=== PATIENT | female | born 1945 | race American Indian/Alaskan Native ===

== ENCOUNTER 2016-09-02 13:07 | Emergency (ER) | payer MEDICARE, OTHER ==
[2016-09-02 13:38] VITALS: BP 132/69
--- NOTE | 2016-09-02 14:17 | EDM.PDOC ---
ED HPI GENERAL MEDICAL PROBLEM - General Chief Complaint: Flank Pain Stated Complaint: [id number] LEFT SIDE HURTS Time Seen by Provider: 09/02/16 13:50 - History of Present Illness INITIAL COMMENTS - FREE TEXT/NARRATIVE: Began having left posterior chest wall/ rib pain which started 2 days ago. Pain is located in the left posterior mid to lower ribs which is worsened with moving. No history of trauma. History of falling after slipping on ice with left rib fractures and left shoulder fracture for which surgery was done. She knows to left with her right hand. 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 She has not done any unusual lifting and has not had any travel history. She has had a viral URI with improvement in nasal congestion and nasal drainage. She has had a cough for a month without fever and tells me the cough is becoming less productive. Onset: Sudden Onset Date: 08/31/16 Duration: Day(s): (two) Location: Reports: Chest (posterior left mid to lower ribs.), Back Quality: Reports: Sharp Severity: Moderate Improves with: Reports: None Worsens with: Reports: Movement Associated Symptoms: Reports: Cough. 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: Acetaminophen, Other (see below) (Had 2 remaining Tramedol tablets which she took yesterday) Left Flank Pain Score (Numeric/FACES): 8 - Related Data Allergies Allergy/AdvReac Type Severity Reaction Status Date / Time codeine Allergy Hives Verified 05/30/15 21:12 Home Meds: Home Meds Atenolol 50 mg PO DAILY 08/26/13 [History] DULoxetine HCl [Cymbalta] 60 mg ORAL.INH DAILY 08/26/13 [History] Levothyroxine Sodium [Synthroid] 100 mcg ORAL.INH DAILY 08/26/13 [History] Pregabalin [Lyrica] 75 mg ORAL.INH BID 08/26/13 [History] Simvastatin [Zocor] 20 mg PO BEDTIME 08/26/13 [History] traMADol [Ultram] 50 mg PO PRN 09/02/16 [History] Past Medical History HEENT History: Reports: Impaired Vision Other HEENT History: Wearing corrective lenses Cardiovascular History: Reports: High Cholesterol, Hypertension Musculoskeletal History: Reports: Arthritis, Other (See Below) Other Musculoskeletal History: Broken ribs Psychiatric History: Reports: Depression Endocrine/Metabolic History: Reports: Hypothyroidism - Past Surgical History GI Surgical History: Reports: Cholecystectomy Female Surgical History: Reports: Hysterectomy Social & Family History - Family History Family Medical History: Noncontributory - Tobacco Use Smoking Status *Q: Never Smoker - Alcohol Use Days Per Week of Alcohol Use: 1 Number of Drinks Per Day: 0 Total Drinks Per Week: 0 - Recreational Drug Use Recreational Drug Use: No - Living Situation & Occupation Living situation: Reports: , with Family Occupation: Employed ED ROS GENERAL - Review of Systems Review Of Systems: See Below Constitutional: Reports: No Symptoms HEENT: Reports: Other (mild nasal congestion which has been improving) Respiratory: Reports: Cough. Denies: Hemoptysis (points to posterior left ribs) Cardiovascular: Reports: No Symptoms GI/Abdominal: Reports: No Symptoms Musculoskeletal: Denies: Neck Pain Skin: Reports: No Symptoms Neurological: Denies: Confusion, Dizziness, Headache, Paresthesia ED EXAM, GI/ABD - Physical Exam Exam: See Below Exam Limited By: No Limitations General Appearance: Alert, WD/WN, No Apparent Distress Eyes: Bilateral: Normal Appearance, EOMI Ears: Normal External Exam Throat/Mouth: Normal Inspection, Normal Lips, Normal Teeth, Normal Gums, Normal Oropharynx, Normal Voice, No Airway Compromise Head: Atraumatic, Normocephalic Neck: Normal Inspection, Supple, Non-Tender, Full Range of Motion Respiratory/Chest: No Respiratory Distress, Lungs Clear, Normal Breath Sounds, No Accessory Muscle Use, Other (diffuse tenderness of left posterior ribs/ chest wall. No corresponding midline back tenderness). No: Crackles, Rales, Rhonchi, Wheezing Cardiovascular: Normal Peripheral Pulses, No Edema, No Murmur, No Rub. No: Systolic Murmur GI/Abdominal: Soft, Non-Tender Back Exam: No: CVA Tenderness (L), CVA Tenderness (R), Muscle Spasm, Vertebral Tenderness Extremities: Normal Inspection, Normal Range of Motion, Non-Tender, Normal Capillary Refill, No Pedal Edema Neurological: Alert, Oriented, CN II-XII Intact, Normal Cognition, Normal Gait, Normal Reflexes, No Motor/Sensory Deficits Course - Vital Signs Last Recorded V/S: Last Vital Signs Temp 98 F 05/13/17 13:36 Pulse 80 09/02/16 13:36 Resp 16 09/02/16 13:36 BP 132/69 09/02/16 13:36 Pulse Ox 98 09/02/16 13:36 - Orders/Labs/Meds Orders: Active Orders 24 hr Category Date Time Status CXR [Chest 2V] [CR] Urgent Exams 09/02/16 13:35 Taken Labs: Laboratory Tests 09/02/16 09/02/16 09/02/16 Range/Units 13:48 13:48 13:59 WBC 9.3 (5.0-10.0) 10^3/uL RBC 5.23 (4.2-5.4) 10^6/uL Hgb 15.3 (12.0-16.0) g/dL Hct 47.3 H (37.0-47.0) % MCV 90.4 (80-100) fL MCH 29.3 (27.0-34.0) pg MCHC 32.3 L (33.0-35.0) g/dL Plt Count 348 (150-450) 10^3/uL Neut % (Auto) 67.2 (42.2-75.2) % Lymph % (Auto) 17.6 L (20.5-50.1) % Rankin % (Auto) 9.4 H (2-8) % Eos % (Auto) 5.4 H (1.0-3.0) % Baso % (Auto) 0.4 (0.0-1.0) % Sodium 137 (135-145) mmol/L Potassium 3.8 (3.6-5.0) mmol/L Chloride 105 (101-111) mmol/L Carbon Dioxide 26.0 (21.0-31.0) mmol/L Anion Gap 9.8 BUN 26 H (7-18) mg/dL Creatinine 1.1 (0.6-1.3) mg/dL Est Cr Clr Drug Dosing 44.55 mL/min Estimated GFR (MDRD) 49 BUN/Creatinine Ratio 23.63 Glucose 94 (74-105) mg/dL Calcium 9.6 (8.4-10.2) mg/dl Total Bilirubin 0.5 (0.2-1.0) mg/dL AST 16 (10-42) IU/L ALT 18 (10-60) IU/L Alkaline Phosphatase 76 (42-121) IU/L Total Protein 8.1 (6.7-8.2) g/dl Albumin 4.3 (3.2-5.5) g/dl Globulin 3.8 Albumin/Globulin Ratio 1.13 Urine Color Yellow (YELLOW) Urine Appearance Slightly cloudy (CLEAR) Urine pH 5.5 (5.0-9.0) Ur Specific [place] 1.020 (1.005-1.030) Urine Protein Negative (NEGATIVE) Urine Glucose (UA) Negative (NEGATIVE) Urine Ketones Trace H (NEGATIVE) Urine Occult Blood Negative (NEGATIVE) Urine Nitrite Negative (NEGATIVE) Urine Bilirubin Small H (NEGATIVE) Urine Urobilinogen 0.2 (0.2-1.0) mg/dL Ur Leukocyte Esterase Trace H (NEGATIVE) Urine RBC 0-5 /HPF Urine WBC 5-10 H (0-5/HPF) /HPF Ur Epithelial Cells Moderate H /HPF Urine Bacteria Many H (0-FEW/HPF) /HPF Urine Mucus Few H /LPF Departure - Departure Time of Disposition: 14:42 Disposition: Home, Self-Care 01 Condition: good Clinical Impression: UTI, Urinary tract infectious disease, Muscle strain, Left-sided chest wall pain URI (upper respiratory infection) Qualifiers: URI type: unspecified viral URI Qualified Code(s): J06.9 - Acute upper respiratory infection, unspecified; B97.89 - Other viral agents as the cause of diseases classified elsewhere - Discharge Information Instructions: Flank Pain, [id number], Pain Medicine Instructions, Easy-to- Read Forms: ED Department Discharge Additional Instructions: Take 1-2 Percocet tablets every 4 hours as needed for pain. Brace the left chest with a pillow when coughing. Try heat to posterior ribs up to 20 minutes every hour. Take Macrobid twice a day for 7 days. Follow up with your doctor in the next 10 days and sooner if worse. - My Orders Last 24 Hours: My Active Orders 09/02/16 13:35 CXR [Chest 2V] [CR] Urgent - Assessment/Plan Last 24 Hours: My Active Orders 09/02/16 13:35 CXR [Chest 2V] [CR] Urgent
== END 2016-09-02 15:13 | disposition home or self-care (01) ==
LOC: DL.ED 13:07
DX: N39.0 Urinary tract infection, site not specified (principal); R07.89 Other chest pain; J06.9 Acute upper respiratory infection, unspecified; B97.89 Other viral agents as the cause of diseases classified elsewhere; I10 Essential (primary) hypertension; Z88.5 Allergy status to narcotic agent; Z79.899 Other long term (current) drug therapy; H54.7 Unspecified visual loss; E78.00 Pure hypercholesterolemia, unspecified; E03.9 Hypothyroidism, unspecified; Z90.710 Acquired absence of both cervix and uterus; Z98.890 Other specified postprocedural states
CPT/HCPCS: 36415; 71020; 80053; 81001; 85025; 85379; 87086; 99283; 99284

== ENCOUNTER 2019-11-07 06:54 | Day surgery (SDC) | payer MEDICARE, OTHER ==
[~2019-11-07 06:54] MED LIST: Midazolam 1 MG/ML 2 ML SDV ONE; fentaNYL 100 MCG/2 ML SDV ONE
[2019-11-07] MEDS ORDERED: Midazolam 1 MG/ML 2 ML SDV IV ONE (06:55)
[2019-11-07] MEDS ORDERED: fentaNYL 100 MCG/2 ML SDV IV ONE (06:55)
[2019-11-07] MEDS: Dextrose 5%-0.45% NaCl 1,000 ML IV SCH (07:27)
[2019-11-07] MEDS: fentaNYL 100 MCG/2 ML SDV IV ONE ×2 (07:36→07:37)
[2019-11-07] MEDS: Midazolam 1 MG/ML 2 ML SDV IV ONE ×2 (07:37→07:38)
--- NOTE | 2019-11-07 09:15 | OR ---
DATE: 11/07/2019 PROCEDURES: Esophagogastroduodenoscopy, narrow-band imaging, and multiple pinch biopsies and brush biopsy. INSTRUMENT USED: GIF-HQ190 Olympus video panendoscope. PREMEDICATIONS: No oral or topical anesthesia used. Fentanyl 100 mcg intravenous, Versed 2 mg intravenous. Nasal O2 cannula. The procedure was done under pulse oximetry, BP recording, and child monitor. INDICATIONS: The patient with previous bariatric surgery with persistent abdominal pain, unexplained and not responsive to medical measures, on high-dose PPI. Esophagogastroduodenoscopy is performed for detection of any active erosive lesions, Calderon esophagus and/or malignancy also under consideration, H pylori status to be determined, endoscopic hemostasis therapy if needed. DESCRIPTION OF PROCEDURE: The scope was passed with ease. Adequate visualization of the esophagus was made from proximal to distal areas. No upper esophageal lesions identified. No distal esophageal stricture. No uphill or downhill esophageal varices. No Diana-Mckeon tear. No evidence of erosive esophagitis by [place] criteria. No esophageal polyp or tumor mass identified. Z-line was seen at around 39 cm distal to the oral verge, configuration consistent with grade 1 by ZAP classification. No proximal gastric varices noted. Gastric fundus examination by retroflexion showed no polypoid lesions. No gastric malignant mass or vascular ectasia identified. Multiple pinch biopsies were taken from the distal and proximal gastric mucosa and sent for PyloriTek test for H pylori and histopathology. At the surgical anastomotic site, 1 cm sized benign-appearing ulcer was noted without bleeding from it. Photographs were taken, NBI views were obtained, multiple pinch biopsies 4 in number were taken from different areas of the ulcer and brush biopsy was also taken. Visualized loops of the small bowel were unremarkable. No bleeding was noted from any of the visualized areas at the completion of examination. Photographs were taken of the anastomotic site, gastric fundus, as well as distal esophagus. IMPRESSION: 1. Status post bariatric surgery. 2. Anastomotic ulcer. 3. The patient tolerated the procedure well. [facility] /[id number]
--- NOTE | 2019-11-07 10:21 | LETTER ---
11/07/2019 Darby Willams NP [facility] [address] [place] [address] RE: YOLY FARMER : 1945 Dear Ms. Willams: Ms. Yoly Farmer had esophagogastroduodenoscopy done this morning and she tolerated the procedure well. I herewith send a copy of the endoscopy note and photographs for your review. Thank you. Sincerely, [facility] /[id number]
[2019-11-07 10:54] VITALS: BP 113/42; PULSE 75
== END 2019-11-07 10:30 | disposition home or self-care (01) ==
LOC: DL.ENDO 06:54
PROVIDERS: ATTEND Internal Medicine Gastroenterology
DX: K29.50 Unspecified chronic gastritis without bleeding (principal); K28.9 Gastrojejunal ulcer, unspecified as acute or chronic, without hemorrhage or perforation; E66.09 Other obesity due to excess calories; I10 Essential (primary) hypertension; E78.00 Pure hypercholesterolemia, unspecified; E03.9 Hypothyroidism, unspecified; F32.9 Major depressive disorder, single episode, unspecified; Z90.49 Acquired absence of other specified parts of digestive tract; Z98.84 Bariatric surgery status; Z79.82 Long term (current) use of aspirin; Z79.899 Other long term (current) drug therapy; Z68.35 Body mass index [BMI] 35.0-35.9, adult
CPT/HCPCS: 43239; 87077; J2250; J3010; J7042; 88305; 88342

== ENCOUNTER 2020-01-15 05:34 | Day surgery (SDC) | payer MEDICARE, OTHER ==
[2020-01-15] MEDS ORDERED: Midazolam 1 MG/ML 2 ML SDV IV ONE ×3 (05:35→06:39)
[2020-01-15] MEDS ORDERED: fentaNYL 100 MCG/2 ML SDV IV ONE ×3 (05:35→06:38)
[2020-01-15] MEDS ORDERED: Dextrose 5%-0.45% NaCl 1,000 ML IV SCH (06:00)
[2020-01-15] MEDS ORDERED: Sodium Chloride 0.9% 10 ML Syringe FLUSH PRN (06:00)
[2020-01-15] MEDS ORDERED: Midazolam 1 MG/ML 2 ML SDV ONE (06:12)
[2020-01-15] MEDS ORDERED: fentaNYL 100 MCG/2 ML SDV ONE (06:12)
[2020-01-15 08:42] VITALS: BP 110/41; PULSE 76
--- NOTE | 2020-01-15 10:01 | OR ---
DATE: 01/15/2020 PROCEDURE: Esophagogastroduodenoscopy and multiple pinch biopsies. INSTRUMENT USED: GIF-HQ190 Olympus video panendoscope. PREMEDICATIONS: No oral or topical anesthesia used. Fentanyl 100 mcg intravenous, Versed 2 mg intravenous. Nasal O2 cannula. The procedure was done under pulse oximetry, BP recording, and quality assurance monitor body. INDICATION: The patient with previous surgical anastomotic ulcer treated with high-dose PPI. Followup esophagogastroduodenoscopy is performed for verification of total healing of ulcer and rule out malignancy. DESCRIPTION OF PROCEDURE: The scope was passed with ease. Adequate visualization of the esophagus was made from proximal to distal areas. No upper esophageal lesions identified. No distal esophageal stricture. No uphill or downhill esophageal varices. No Diana-Mckeon tear. No evidence of erosive esophagitis by [place] criteria. No esophageal polyp or tumor mass identified. Z-line was seen at around 39 cm distal to the oral verge. Configuration consistent with grade 1 by ZAP classification. No proximal gastric varices noted. Gastric fundus examination by retroflexion showed no polypoid lesions. No gastric ulcer, malignant mass, or vascular ectasia identified. Surgical anastomotic site was unremarkable. Photographs were taken. Visualized loops of the small bowel were unremarkable. No bleeding was noted from any of the visualized areas at the completion of examination. IMPRESSION: Status post gastric surgery. The patient tolerated the procedure well. [facility] /[id number]
--- NOTE | 2020-01-15 11:12 | LETTER ---
01/15/[address] [facility] [address] [place] [address] RE: YOLY FARMER : 1945 Dear Ms. Willams: Ms. Yoly Farmer had esophagogastroduodenoscopy done this morning and she tolerated the procedure well. I herewith send a copy of the endoscopy note and photographs for your review. Thank you. Sincerely, [facility] /[id number]
== END 2020-01-15 08:45 | disposition home or self-care (01) ==
LOC: DL.ENDO 05:34
PROVIDERS: ATTEND Internal Medicine Gastroenterology
DX: Z09 Encounter for follow-up examination after completed treatment for conditions other than malignant neoplasm (principal); Z87.19 Personal history of other diseases of the digestive system; Z98.84 Bariatric surgery status
CPT/HCPCS: J2250; J3010; J7042

== ENCOUNTER 2021-08-09 06:38 | Emergency (ER) | payer MEDICARE, OTHER ==
[2021-08-09 06:47] VITALS: BP 148/75; PULSE 70
[2021-08-09] MEDS ORDERED: Sodium Chloride 0.9% 500 ML IV ONE (07:58)
[2021-08-09] MEDS ORDERED: Metoclopramide 10 MG/2 ML SDV IVPUSH ONE (08:00)
[2021-08-09 08:08] LABS: ANION GAP 12.5 mEq/L (7-13); CHLORIDE,CL 103 mmol/L (98-107); SODIUM,NA 140 mmol/L (136-145)
[2021-08-09] MEDS ORDERED: Iopamidol 612 MG/ML 100 ML Bottle IVPUSH ONE (08:55)
== END 2021-08-09 09:45 | disposition home or self-care (01) ==
LOC: DL.ED 06:38
DX: R10.11 Right upper quadrant pain (principal); E86.0 Dehydration; E78.00 Pure hypercholesterolemia, unspecified; R63.4 Abnormal weight loss; I10 Essential (primary) hypertension; K21.9 Gastro-esophageal reflux disease without esophagitis; I48.91 Unspecified atrial fibrillation; E03.9 Hypothyroidism, unspecified; E66.9 Obesity, unspecified; Z87.891 Personal history of nicotine dependence; Z79.899 Other long term (current) drug therapy; Z88.8 Allergy status to other drugs, medicaments and biological substances; Z79.02 Long term (current) use of antithrombotics/antiplatelets; Z79.01 Long term (current) use of anticoagulants; Z68.34 Body mass index [BMI] 34.0-34.9, adult
CPT/HCPCS: 36415; 74177; 80053; 81003; 82150; 83605; 83690; 83735; 84484; 85025; 86140; 96374; 99284; J2765; J7030; Q9967

== ENCOUNTER 2022-01-29 11:46 | Emergency (ER) | payer MEDICARE, OTHER ==
[2022-01-29] MEDS ORDERED: Tetracaine HCl/PF 0.5% 4 ML Bottle ONE (12:24)
[2022-01-29] MEDS ORDERED: prednisoLONE Acetate 1% Ophth Susp 5 ML Bottle ONE (12:24)
== END 2022-01-29 12:36 | disposition home or self-care (01) ==
LOC: DL.ED 11:46
DX: H10.212 Acute toxic conjunctivitis, left eye (principal)
CPT/HCPCS: 99282

== ENCOUNTER 2022-04-21 22:48 | Emergency (ER) | payer MEDICARE, OTHER ==
[2022-04-21 23:34] LABS: ANION GAP 19.5 mEq/L (7-13); CHLORIDE,CL 108 mmol/L (98-107); SODIUM,NA 144 mmol/L (136-145)
[2022-04-21 23:35] LABS: ESTIMATED GFR 76 mL/min (>=60)
[2022-04-21] MEDS ORDERED: LORazepam 2 MG/ML SDV IVPUSH ONE (23:41)
[2022-04-21] MEDS ORDERED: Ketorolac 30 MG/ML SDV IVPUSH ONE (23:41)
[2022-04-21 23:48] LABS: AMPHETAMINES,URINE NEGATIVE (NEGATIVE); BARBITURATES,URINE NEGATIVE (NEGATIVE); BENZODIAZEPINE,URINE NEGATIVE (NEGATIVE); MDMA (ECSTASY), URINE NEGATIVE (NEGATIVE); METHADONE,URINE NEGATIVE (NEGATIVE); METHAMPHETAMINES,URINE NEGATIVE (NEGATIVE); OPIATES,URINE NEGATIVE (NEGATIVE); OXYCODONE,URINE NEGATIVE (NEGATIVE); PHENCYCLIDINE,URINE NEGATIVE (NEGATIVE); TCA,URINE NEGATIVE (NEGATIVE)
== END 2022-04-22 00:30 | disposition home or self-care (01) ==
LOC: DL.ED 22:48
DX: S00.03XA Contusion of scalp, initial encounter (principal); F10.129 Alcohol abuse with intoxication, unspecified; L56.8 Other specified acute skin changes due to ultraviolet radiation; I10 Essential (primary) hypertension; Z90.49 Acquired absence of other specified parts of digestive tract; Z90.710 Acquired absence of both cervix and uterus; Z88.5 Allergy status to narcotic agent; Z88.6 Allergy status to analgesic agent; Z79.899 Other long term (current) drug therapy; Z79.01 Long term (current) use of anticoagulants; W01.10XA Fall on same level from slipping, tripping and stumbling with subsequent striking against unspecified object, initial encounter
CPT/HCPCS: 36415; 70450; 71250; 72125; 74176; 80053; 80305; 80307; 81003; 83605; 83735; 84145; 84443; 84484; 85025; 85610; 85730; 86140; 93005; 96374; 96375; 99285; J1885; J2060

== ENCOUNTER 2022-11-09 11:25 | Emergency (ER) | payer MEDICARE, OTHER ==
[2022-11-09] MEDS ORDERED: fentaNYL 100 MCG/2 ML SDV IV ONE (11:26)
[2022-11-09] MEDS ORDERED: LORazepam 2 MG/ML SDV IV ONE (11:26)
[2022-11-09] MEDS ORDERED: Sodium Chloride 0.9% 10 ML Syringe FLUSH PRN (11:27)
[2022-11-09] MEDS ORDERED: LORazepam 2 MG/ML SDV IVPUSH ONE ×2 (11:31→12:00)
[2022-11-09 11:47] LABS: BASOPHILS PERCENT AUTO 0.3 % (0.0-1.0); HEMATOCRIT 44.3 % (37.0-47.0); HEMOGLOBIN 14.6 g/dL (12.0-16.0); LYMPHOCYTES PERCENT AUTO 30.3 % (20.5-50.1); MEAN CORPUSCULAR HEMOGLOBIN 31.6 pg (27.0-34.0); MEAN CORPUSCULAR VOLUME 95.9 fL (80-100); NEUTROPHILS PERCENT AUTO 58.4 % (42.2-75.2); PLATELET COUNT,PLT 420 10^3/uL (150-450); RED BLOOD CELL COUNT 4.62 10^6/uL (4.2-5.4); WHITE BLOOD CELL COUNT,WBC 8.9 10^3/uL (5.0-10.0)
[2022-11-09] MEDS ORDERED: Iopamidol 612 MG/ML 100 ML Bottle IVPUSH ONE (11:59)
[2022-11-09 12:05] LABS: PROTHROMBIN TIME 10.2 SEC (9.0-12.0); PTT,PARTIAL THROMBOPLSTIN TIME 27.7 SEC (22.0-34.0)
[2022-11-09] MEDS ORDERED: fentaNYL 100 MCG/2 ML SDV IVPUSH ONE (12:05)
[2022-11-09 12:10] LABS: ALANINE AMINOTRANSFERASE,ALT 29 U/L (14-59); ALBUMIN 3.2 g/dL (3.4-5.0); ALKALINE PHOSPHATASE 84 U/L (46-116); ANION GAP 16.6 mEq/L (7-13); ASPARTATE AMNIOTRANSFERASE,AST 31 U/L (15-37); BILIRUBIN TOTAL 0.2 mg/dL (0.2-1.0); BLOOD UREA NITROGEN,BUN 7 mg/dL (7-18); BUN/CREATININE RATIO 8.5 (No establ ref range); CALCIUM 7.9 mg/dL (8.5-10.1); CARBON DIOXIDE,CO2 25 mmol/L (21-32); CHLORIDE,CL 108 mmol/L (98-107); CREATINE KINASE,CK 53 U/L (16-191); CREATININE 0.82 mg/dL (0.55-1.02); ETHANOL BLOOD MEDICAL 272 mg/dL (0); GLUCOSE RANDOM 122 mg/dL (70-99); MAGNESIUM 1.8 mg/dL (1.8-2.4); POTASSIUM,K 3.6 mmol/L (3.5-5.1); PROTEIN TOTAL,TP 7.7 g/dL (6.4-8.2); SODIUM,NA 146 mmol/L (136-145)
[2022-11-09 12:11] LABS: B-TYPE NATRIURETIC PEPTIDE,BNP 24 pg/ml (0-100)
[2022-11-09 12:12] LABS: A/G RATIO 0.71; ACETAMINOPHEN 0 ug/mL (10-30 (Therapeutic)); C-REACTIVE PROTEIN < 0.2 mg/dL (0.0-0.9); ESTIMATED GFR 74 mL/min (>=60)
[2022-11-09] MEDS ORDERED: MVI, Adult with Vitamin K 10 ML, Folic Acid 1 MG, Thiamine 100 MG in Lactated Ringers 1... IV ONE ×8 (12:45→12:46)
[2022-11-09] MEDS ORDERED: Sodium Chloride 0.9% 1,000 ML IV ONE (14:17)
[2022-11-09] MEDS ORDERED: Acetaminophen 500 MG Tab PO ONE (15:59)
== END 2022-11-09 18:14 | disposition home or self-care (01) ==
LOC: DL.ED 11:25
DX: F10.120 Alcohol abuse with intoxication, uncomplicated (principal); R45.851 Suicidal ideations; E03.9 Hypothyroidism, unspecified; I48.91 Unspecified atrial fibrillation; E78.00 Pure hypercholesterolemia, unspecified; I10 Essential (primary) hypertension; K21.9 Gastro-esophageal reflux disease without esophagitis; E66.9 Obesity, unspecified; Z79.01 Long term (current) use of anticoagulants; Z79.899 Other long term (current) drug therapy; Z88.5 Allergy status to narcotic agent; Z88.8 Allergy status to other drugs, medicaments and biological substances; W19.XXXA Unspecified fall, initial encounter
CPT/HCPCS: 36415; 70450; 71260; 72125; 74177; 80053; 80143; 80179; 80307; 82140; 82550; 83605; 83735; 83880; 84145; 84484; 85025; 85610; 85730; 86140; 93005; 93010; 96365; 99284; 99285; J2060; J3010; J3411; J7120; Q9967; J3490

== ENCOUNTER 2022-12-27 15:00 | Observation (INO) | payer MEDICARE, OTHER ==
[2022-12-27] MEDS ORDERED: Sodium Chloride 0.9% 10 ML Syringe FLUSH PRN (15:17)
[2022-12-27] MEDS ORDERED: Activated Charcoal/Water Susp 50 GM/240 ML Tube PO ONE (15:18)
[2022-12-27] MEDS ORDERED: Thiamine 100 MG in Sodium Chloride 0.9% 100 ML IV ONE (15:18)
[2022-12-27] MEDS ORDERED: Sodium Chloride 0.9% 1,000 ML IV ONE (15:18)
[2022-12-27 15:43] LABS: HEMATOCRIT 40.9 % (37.0-47.0); HEMOGLOBIN 13.7 g/dL (12.0-16.0); MEAN CORPUSCULAR HEMOGLOBIN 31.4 pg (27.0-34.0); MEAN CORPUSCULAR HGB CONC 33.5 g/dL (33.0-35.0); MEAN CORPUSCULAR VOLUME 93.6 fL (80-100); PLATELET COUNT,PLT 466 10^3/uL (150-450); RED BLOOD CELL COUNT 4.37 10^6/uL (4.2-5.4); WHITE BLOOD CELL COUNT,WBC 9.8 10^3/uL (5.0-10.0)
[2022-12-27 15:52] LABS: LYMPHOCYTES PERCENT AUTO 36.9 % (20.5-50.1); MONOCYTES PERCENT AUTO 10.3 % (2-8); NEUTROPHILS PERCENT AUTO 50.9 % (42.2-75.2)
[2022-12-27 15:53] LABS: BASOPHILS PERCENT AUTO 0.3 % (0.0-1.0); EOSINOPHILS PERCENT AUTO 1.6 % (1.0-3.0)
[2022-12-27 16:01] LABS: PTT,PARTIAL THROMBOPLSTIN TIME 27.6 SEC (22.0-34.0)
[2022-12-27 16:01] LABS: APPEARANCE,URINE SLIGHTLY CLOUDY (CLEAR); BILIRUBIN,URINE NEGATIVE (NEGATIVE); COLOR,URINE YELLOW (YELLOW); GLUCOSE,URINE NEGATIVE (NEGATIVE); KETONES,URINE NEGATIVE (NEGATIVE); LEUKOCYTE ESTERASE,URINE TRACE (NEGATIVE); NITRITE,URINE POSITIVE (NEGATIVE); OCCULT BLOOD,URINE TRACE-INTACT (NEGATIVE); PROTEIN,URINE NEGATIVE (NEGATIVE); UROBILINOGEN,URINE 0.2 mg/dL (0.2-1.0)
[2022-12-27 16:05] LABS: AMPHETAMINES,URINE NEGATIVE (NEGATIVE); BARBITURATES,URINE NEGATIVE (NEGATIVE); BENZODIAZEPINE,URINE NEGATIVE (NEGATIVE); MDMA (ECSTASY), URINE NEGATIVE (NEGATIVE); METHADONE,URINE NEGATIVE (NEGATIVE); METHAMPHETAMINES,URINE NEGATIVE (NEGATIVE); OPIATES,URINE NEGATIVE (NEGATIVE); OXYCODONE,URINE NEGATIVE (NEGATIVE); PHENCYCLIDINE,URINE NEGATIVE (NEGATIVE); TCA,URINE NEGATIVE (NEGATIVE)
[2022-12-27 16:11] LABS: EOSINOPHILS PERCENT MAN 2 % (1-3); LYMPHOCYTES PERCENT MAN 41 % (20-50); MONOCYTES PERCENT MAN 8 % (2-8); SEG NEUTROPHILS PERCENT MAN 49 % (42-75)
[2022-12-27 16:12] LABS: A/G RATIO 0.82; ALANINE AMINOTRANSFERASE,ALT 20 U/L (14-59); ALBUMIN 3.2 g/dL (3.4-5.0); ALKALINE PHOSPHATASE 80 U/L (46-116); ANION GAP 15.4 mEq/L (7-13); ASPARTATE AMNIOTRANSFERASE,AST 24 U/L (15-37); BILIRUBIN TOTAL 0.3 mg/dL (0.2-1.0); BLOOD UREA NITROGEN,BUN 7 mg/dL (7-18); BUN/CREATININE RATIO 12.3 (No establ ref range); CARBON DIOXIDE,CO2 24 mmol/L (21-32); CHLORIDE,CL 110 mmol/L (98-107); CREATININE 0.57 mg/dL (0.55-1.02); ESTIMATED GFR 94 mL/min (>=60); ETHANOL BLOOD MEDICAL 221 mg/dL (0); GLUCOSE RANDOM 109 mg/dL (70-99); MAGNESIUM 1.8 mg/dL (1.8-2.4); POTASSIUM,K 3.4 mmol/L (3.5-5.1); PROTEIN TOTAL,TP 7.1 g/dL (6.4-8.2); SODIUM,NA 146 mmol/L (136-145); TSH ULTRASENSITIVE 0.82 uIU/mL (0.36-3.74)
[2022-12-27 16:13] LABS: ACETAMINOPHEN 0 ug/mL (10-30 (Therapeutic))
[2022-12-27 16:15] LABS: AMORPHOUS SEDIMENT,URINE FEW /HPF (NOT SEEN); BACTERIA,URINE MANY /HPF (0-FEW/HPF); EPITHELIAL CELLS,URINE FEW /HPF (NOT SEEN); MUCUS,URINE RARE /LPF (NOT SEEN); RBC,URINE 0-5 /HPF (0-5); WBC,URINE 0-5 /HPF (0-5/HPF)
[2022-12-27] MEDS ORDERED: Acetaminophen 325 MG Tab PO PRN (17:26)
[2022-12-27] MEDS ORDERED: Ondansetron 4 MG/2 ML SDV IVPUSH PRN (17:26)
[2022-12-27] MEDS ORDERED: Meclizine 12.5 MG Tab PO PRN (17:29)
[2022-12-27] MEDS ORDERED: traZODone 50 MG Tab PO PRN (17:29)
[2022-12-27] MEDS ORDERED: diphenhydrAMINE 25 MG Tab PO PRN (17:29)
[2022-12-27] MEDS ORDERED: [UNRECOGNIZED DRUG - OTHER] PO PRN (17:29)
[2022-12-27] MEDS ORDERED: Melatonin 3 MG Tab PO PRN (18:47)
[2022-12-27] MEDS: Polyvinyl Alcohol 1.4% Ophth Soln 15 ML Bottle EYEBOTH SCH (18:48)
[2022-12-27] MEDS: ClonazePAM 0.5 MG Tab PO PRN (20:22)
[2022-12-27] MEDS: Docusate Sodium 100 MG Cap PO SCH (20:23)
[2022-12-27] MEDS: traZODone 50 MG Tab PO PRN (20:23)
[2022-12-27] MEDS: Amitriptyline 25 MG Tab PO SCH (20:23)
[2022-12-27] MEDS ORDERED: Non-Formulary Medication 1 Each (Clobetasol [Clobetasol Propionate 0.05%] 15 GM Tube) TP SCH (21:00)
[2022-12-27] MEDS ORDERED: IRON PO SCH (21:00)
[2022-12-27] MEDS ORDERED: [UNRECOGNIZED DRUG - OTHER] PO SCH (21:00)
[2022-12-27] MEDS ORDERED: Apixaban 5 MG Tab PO SCH (21:00)
[2022-12-27] MEDS ORDERED: FOLIC ACID PO SCH (21:00)
[2022-12-27] MEDS ORDERED: MULTIVIT MIN PO SCH (21:00)
[2022-12-27] MEDS ORDERED: Non-Formulary Medication 1 Each (Ketotifen [Ketotifen 0.025% Ophth Soln] 5 ML Bottle) OP SCH (21:00)
[2022-12-28] MEDS ORDERED: Levothyroxine 75 MCG Tab PO SCH (06:00)
[2022-12-28] MEDS: Polyvinyl Alcohol 1.4% Ophth Soln 15 ML Bottle EYEBOTH SCH ×4 (06:18→18:55)
[2022-12-28 06:39] LABS: ANION GAP 14.2 mEq/L (7-13); CALCIUM 7.7 mg/dL (8.5-10.1); CREATININE 0.72 mg/dL (0.55-1.02); EST CRCL DRUG DOSING (CG) 59.81 mL/min; POTASSIUM,K 3.2 mmol/L (3.5-5.1)
[2022-12-28] MEDS ORDERED: Cyanocobalamin (Vitamin B12) 1,000 MCG Tab PO SCH (09:00)
[2022-12-28] MEDS ORDERED: Magnesium Oxide 400 MG Tab PO SCH (09:00)
[2022-12-28] MEDS ORDERED: Cholecalciferol (Vitamin D3) 25 MCG Tab PO SCH (09:00)
[2022-12-28] MEDS ORDERED: Atenolol 50 MG Tab PO SCH (09:00)
[2022-12-28] MEDS: Loratadine 10 MG Tab PO SCH (09:10)
[2022-12-28] MEDS: Omeprazole 20 MG Cap.CR PO SCH (09:10)
[2022-12-28] MEDS: Docusate Sodium 100 MG Cap PO SCH ×2 (09:10→20:53)
[2022-12-28] MEDS ORDERED: Potassium Chloride 10 MEQ Tab.ER PO ONE (11:47)
[2022-12-28] MEDS: Ibuprofen 600 MG Tab PO PRN (11:48)
[2022-12-28] MEDS ORDERED: chlordiazePOXIDE 25 MG Cap PO PRN (15:19)
[2022-12-28] MEDS: Folic Acid 1 MG Tab PO SCH (15:53)
[2022-12-28] MEDS: Multivitamin Tab PO SCH (15:53)
[2022-12-28] MEDS: Amitriptyline 25 MG Tab PO SCH (20:53)
[2022-12-28] MEDS: traZODone 50 MG Tab PO PRN (20:58)
[2022-12-28] MEDS: ClonazePAM 0.5 MG Tab PO PRN (20:58)
[2022-12-28] MEDS ORDERED: cefTRIAXone 2 GM Vial IVPUSH SCH (21:00)
[2022-12-29] MEDS: Polyvinyl Alcohol 1.4% Ophth Soln 15 ML Bottle EYEBOTH SCH ×3 (04:52→12:28)
[2022-12-29 09:06] LABS: BASOPHILS PERCENT AUTO 0.3 % (0.0-1.0); EOSINOPHILS PERCENT AUTO 2.9 % (1.0-3.0); HEMATOCRIT 39.2 % (37.0-47.0); HEMOGLOBIN 13.1 g/dL (12.0-16.0); LYMPHOCYTES PERCENT AUTO 29.9 % (20.5-50.1); MEAN CORPUSCULAR HGB CONC 33.4 g/dL (33.0-35.0); MEAN CORPUSCULAR VOLUME 95.6 fL (80-100); MONOCYTES PERCENT AUTO 9.8 % (2-8); NEUTROPHILS PERCENT AUTO 57.1 % (42.2-75.2); PLATELET COUNT,PLT 382 10^3/uL (150-450); WHITE BLOOD CELL COUNT,WBC 7.5 10^3/uL (5.0-10.0)
[2022-12-29] MEDS: Omeprazole 20 MG Cap.CR PO SCH (09:21)
[2022-12-29] MEDS: Multivitamin Tab PO SCH (09:21)
[2022-12-29] MEDS: Docusate Sodium 100 MG Cap PO SCH (09:21)
[2022-12-29] MEDS: Loratadine 10 MG Tab PO SCH (09:21)
[2022-12-29] MEDS: Folic Acid 1 MG Tab PO SCH (09:21)
[2022-12-29] MEDS: Ibuprofen 600 MG Tab PO PRN ×2 (09:28→16:23)
[2022-12-29 16:33] VITALS: BP 130/65; PULSE 92
== END 2022-12-29 17:07 | disposition home or self-care (01) ==
LOC: DL.ED 15:00 → DL.MS 16:44 → DL.ED 16:47
PROVIDERS: ADMIT Hospitalist; ATTEND Hospitalist
DX: T43.212A Poisoning by selective serotonin and norepinephrine reuptake inhibitors, intentional self-harm, initial encounter (principal); F10.20 Alcohol dependence, uncomplicated; I49.9 Cardiac arrhythmia, unspecified; E78.00 Pure hypercholesterolemia, unspecified; I10 Essential (primary) hypertension; K21.9 Gastro-esophageal reflux disease without esophagitis; M19.90 Unspecified osteoarthritis, unspecified site; M79.7 Fibromyalgia; F41.9 Anxiety disorder, unspecified; F32.A Depression, unspecified; E03.9 Hypothyroidism, unspecified; E66.9 Obesity, unspecified; Z87.891 Personal history of nicotine dependence; Z88.5 Allergy status to narcotic agent; Z88.8 Allergy status to other drugs, medicaments and biological substances; Z79.01 Long term (current) use of anticoagulants; Z79.899 Other long term (current) drug therapy; Y90.7 Blood alcohol level of 200-239 mg/100 ml
CPT/HCPCS: 36415; 80048; 80053; 80143; 80179; 80305; 80307; 81001; 83605; 83735; 84443; 85025; 85610; 85730; 87086; 87088; 87186; 93005; 96365; 99285; A9270; J0696; J3411; J3490; J7030; 96375; 99223; 99232; 99239; G0378

== ENCOUNTER 2023-05-01 07:24 | Day surgery (SDC) | payer MEDICARE, OTHER ==
[2023-05-01] MEDS ORDERED: Dextrose 5%-0.45% NaCl 1,000 ML IV SCH (07:30)
[2023-05-01] MEDS ORDERED: Midazolam 1 MG/ML 2 ML SDV IV ONE ×3 (07:33→08:45)
[2023-05-01] MEDS ORDERED: fentaNYL 100 MCG/2 ML SDV IV ONE ×3 (07:33→08:44)
[2023-05-01] MEDS ORDERED: fentaNYL 100 MCG/2 ML SDV ONE (07:33)
[2023-05-01] MEDS ORDERED: Midazolam 1 MG/ML 2 ML SDV ONE (07:33)
[2023-05-01 10:59] VITALS: BP 116/62
[2023-05-01 11:01] VITALS: PULSE 69
== END 2023-05-01 10:35 | disposition home or self-care (01) ==
LOC: DL.ENDO 07:24
PROVIDERS: ATTEND Internal Medicine Gastroenterology
DX: K29.50 Unspecified chronic gastritis without bleeding (principal); Z98.84 Bariatric surgery status; I10 Essential (primary) hypertension; E78.00 Pure hypercholesterolemia, unspecified; I48.0 Paroxysmal atrial fibrillation; E03.9 Hypothyroidism, unspecified; F32.A Depression, unspecified; Z88.5 Allergy status to narcotic agent; Z88.6 Allergy status to analgesic agent
CPT/HCPCS: 87077; 88305; J2250; J3010; J7042

== ENCOUNTER 2023-05-07 05:26 | Day surgery (SDC) | payer MEDICARE, OTHER ==
[2023-05-07] MEDS ORDERED: Dextrose 5%-0.45% NaCl 1,000 ML IV SCH (05:30)
[2023-05-07] MEDS ORDERED: Midazolam 1 MG/ML 2 ML SDV ONE (06:14)
[2023-05-07] MEDS ORDERED: fentaNYL 100 MCG/2 ML SDV IV ONE ×3 (06:15→06:38)
[2023-05-07] MEDS ORDERED: Midazolam 1 MG/ML 2 ML SDV IV ONE ×7 (06:15→06:54)
[2023-05-07] MEDS ORDERED: fentaNYL 100 MCG/2 ML SDV ONE (06:15)
[2023-05-07 08:56] VITALS: BP 106/76; PULSE 52
== END 2023-05-07 09:15 | disposition home or self-care (01) ==
LOC: DL.ENDO 05:26
PROVIDERS: ATTEND Internal Medicine Gastroenterology
DX: K57.30 Diverticulosis of large intestine without perforation or abscess without bleeding (principal); K55.20 Angiodysplasia of colon without hemorrhage; I10 Essential (primary) hypertension; E03.9 Hypothyroidism, unspecified; E66.9 Obesity, unspecified; Z68.27 Body mass index [BMI] 27.0-27.9, adult; F32.A Depression, unspecified; E78.00 Pure hypercholesterolemia, unspecified; I48.0 Paroxysmal atrial fibrillation; Z88.5 Allergy status to narcotic agent; Z88.6 Allergy status to analgesic agent
CPT/HCPCS: J2250; J3010; J7042

== ENCOUNTER 2024-07-23 13:40 | Emergency (ER) | payer MEDICARE, OTHER ==
[2024-07-23] MEDS ORDERED: Sodium Chloride 0.9% 10 ML Syringe FLUSH PRN (13:50)
[2024-07-23 14:06] LABS: BASOPHILS PERCENT AUTO 0.3 % (0.0-1.0); EOSINOPHILS PERCENT AUTO 1.7 % (1.0-3.0); HEMATOCRIT 38.6 % (37.0-47.0); HEMOGLOBIN 12.4 g/dL (12.0-16.0); LYMPHOCYTES PERCENT AUTO 27.1 % (20.5-50.1); MEAN CORPUSCULAR HEMOGLOBIN 28.4 pg (27.0-34.0); MEAN CORPUSCULAR HGB CONC 32.1 g/dL (33.0-35.0); MEAN CORPUSCULAR VOLUME 88.5 fL (80-100); MONOCYTES PERCENT AUTO 9.1 % (2-8); NEUTROPHILS PERCENT AUTO 61.8 % (42.2-75.2); PLATELET COUNT,PLT 359 10^3/uL (150-450); RED BLOOD CELL COUNT 4.36 10^6/uL (4.2-5.4); WHITE BLOOD CELL COUNT,WBC 7.8 10^3/uL (5.0-10.0)
[2024-07-23] MEDS: Magnesium Sulf/Wat 2 GM/50 mL 2 GM in Premix Bag 1 BAG IV ONE ×2 (14:10→14:11)
[2024-07-23 14:37] LABS: A/G RATIO 0.79; ALANINE AMINOTRANSFERASE,ALT 14 U/L (14-59); ALKALINE PHOSPHATASE 52 U/L (46-116); ANION GAP 13.2 mEq/L (7-13); ASPARTATE AMNIOTRANSFERASE,AST 16 U/L (15-37); BILIRUBIN TOTAL 0.3 mg/dL (0.2-1.0); BLOOD UREA NITROGEN,BUN 20 mg/dL (7-18); BUN/CREATININE RATIO 26.3 (No establ ref range); CALCIUM 8.5 mg/dL (8.5-10.1); CARBON DIOXIDE,CO2 23 mmol/L (21-32); CHLORIDE,CL 111 mmol/L (98-107); CREATININE 0.76 mg/dL (0.55-1.02); EST CRCL DRUG DOSING (CG) 61.54 mL/min; ESTIMATED GFR 80 mL/min (>=60); GLUCOSE RANDOM 92 mg/dL (70-99); MAGNESIUM 1.6 mg/dL (1.8-2.4); POTASSIUM,K 4.2 mmol/L (3.5-5.1); PROTEIN TOTAL,TP 6.8 g/dL (6.4-8.2); SODIUM,NA 143 mmol/L (136-145); T4 FREE 0.88 ng/dL (0.76-1.46); TSH ULTRASENSITIVE 2.84 uIU/mL (0.36-3.74)
[2024-07-23 14:38] LABS: C-REACTIVE PROTEIN < 0.50 ng/dL (<=0.50)
[2024-07-23 14:55] LABS: APPEARANCE,URINE CLEAR (CLEAR); BILIRUBIN,URINE NEGATIVE (NEGATIVE); COLOR,URINE YELLOW (YELLOW); GLUCOSE,URINE NEGATIVE (NEGATIVE); KETONES,URINE NEGATIVE (NEGATIVE); LEUKOCYTE ESTERASE,URINE TRACE (NEGATIVE); NITRITE,URINE NEGATIVE (NEGATIVE); OCCULT BLOOD,URINE NEGATIVE (NEGATIVE); PROTEIN,URINE NEGATIVE (NEGATIVE); UROBILINOGEN,URINE 0.2 mg/dL (0.2-1.0)
[2024-07-23 15:03] LABS: AMORPHOUS SEDIMENT,URINE RARE /HPF (NOT SEEN); BACTERIA,URINE RARE /HPF (0-FEW/HPF); EPITHELIAL CELLS,URINE FEW /HPF (NOT SEEN); MUCUS,URINE FEW /LPF (NOT SEEN); RBC,URINE 0-5 /HPF (0-5); WBC,URINE 0-5 /HPF (0-5/HPF)
[2024-07-23 15:07] VITALS: BP 113/59; PULSE 56
== END 2024-07-23 15:30 | disposition home or self-care (01) ==
LOC: DL.ED 13:40
DX: I49.3 Ventricular premature depolarization (principal); I10 Essential (primary) hypertension; I48.91 Unspecified atrial fibrillation; E78.00 Pure hypercholesterolemia, unspecified; E66.9 Obesity, unspecified; E03.9 Hypothyroidism, unspecified; M19.90 Unspecified osteoarthritis, unspecified site; Z88.8 Allergy status to other drugs, medicaments and biological substances; Z88.5 Allergy status to narcotic agent; Z79.899 Other long term (current) drug therapy; Z79.1 Long term (current) use of non-steroidal anti-inflammatories (NSAID); Z79.890 Hormone replacement therapy; Z79.01 Long term (current) use of anticoagulants; Z79.891 Long term (current) use of opiate analgesic; Z90.49 Acquired absence of other specified parts of digestive tract; Z90.710 Acquired absence of both cervix and uterus; Z68.26 Body mass index [BMI] 26.0-26.9, adult
CPT/HCPCS: 36415; 80053; 81001; 83735; 84439; 84443; 84484; 85025; 86140; 87086; 93005; 93010; 96365; 99284; 99285; J3475

== ENCOUNTER 2024-08-20 17:05 | Emergency (ER) | payer MEDICARE, OTHER ==
[~2024-08-20 17:05] MED LIST changes: -Midazolam 1 MG/ML 2 ML SDV ONE; +Sodium Chloride 0.9% 10 ML Syringe FLUSH PRN; -fentaNYL 100 MCG/2 ML SDV ONE
[2024-08-20 17:17] LABS: BASOPHILS PERCENT AUTO 0.3 % (0.0-1.0); EOSINOPHILS PERCENT AUTO 1.5 % (1.0-3.0); HEMATOCRIT 40.1 % (37.0-47.0); HEMOGLOBIN 12.8 g/dL (12.0-16.0); LYMPHOCYTES PERCENT AUTO 42.7 % (20.5-50.1); MEAN CORPUSCULAR HEMOGLOBIN 28.4 pg (27.0-34.0); MEAN CORPUSCULAR HGB CONC 31.9 g/dL (33.0-35.0); MEAN CORPUSCULAR VOLUME 88.9 fL (80-100); MONOCYTES PERCENT AUTO 6.3 % (2-8); NEUTROPHILS PERCENT AUTO 49.2 % (42.2-75.2); PLATELET COUNT,PLT 397 10^3/uL (150-450); RED BLOOD CELL COUNT 4.51 10^6/uL (4.2-5.4); WHITE BLOOD CELL COUNT,WBC 9.1 10^3/uL (5.0-10.0)
[2024-08-20 17:37] LABS: A/G RATIO 0.83; ALANINE AMINOTRANSFERASE,ALT 19 U/L (14-59); ALBUMIN 3.3 g/dL (3.4-5.0); ALKALINE PHOSPHATASE 54 U/L (46-116); ANION GAP 13.9 mEq/L (7-13); ASPARTATE AMNIOTRANSFERASE,AST 16 U/L (15-37); BILIRUBIN TOTAL 0.2 mg/dL (0.2-1.0); BLOOD UREA NITROGEN,BUN 19 mg/dL (7-18); BUN/CREATININE RATIO 26.4 (No establ ref range); CALCIUM 8.8 mg/dL (8.5-10.1); CARBON DIOXIDE,CO2 27 mmol/L (21-32); CHLORIDE,CL 105 mmol/L (98-107); CREATININE 0.72 mg/dL (0.55-1.02); ESTIMATED GFR 86 mL/min (>=60); ETHANOL BLOOD MEDICAL 283 mg/dL (0); GLUCOSE RANDOM 91 mg/dL (70-99); MAGNESIUM 1.9 mg/dL (1.8-2.4); PROTEIN TOTAL,TP 7.3 g/dL (6.4-8.2); SODIUM,NA 141 mmol/L (136-145)
[2024-08-20 17:38] LABS: POTASSIUM,K 4.9 mmol/L (3.5-5.1)
[2024-08-20 18:37] VITALS: BP 115/65; PULSE 71
== END 2024-08-20 18:34 | disposition home or self-care (01) ==
LOC: DL.ED 17:05
DX: F10.120 Alcohol abuse with intoxication, uncomplicated (principal); S00.33XA Contusion of nose, initial encounter; M25.511 Pain in right shoulder; I48.91 Unspecified atrial fibrillation; E78.00 Pure hypercholesterolemia, unspecified; I10 Essential (primary) hypertension; E03.9 Hypothyroidism, unspecified; Z88.5 Allergy status to narcotic agent; Z88.8 Allergy status to other drugs, medicaments and biological substances; Z79.899 Other long term (current) drug therapy; Z79.01 Long term (current) use of anticoagulants; Z90.49 Acquired absence of other specified parts of digestive tract; W01.0XXA Fall on same level from slipping, tripping and stumbling without subsequent striking against object, initial encounter; Y93.89 Activity, other specified; Y90.9 Presence of alcohol in blood, level not specified
CPT/HCPCS: 36415; 70450; 72125; 73030-RT; 80053; 80307; 83735; 85025; 99284

== ENCOUNTER 2024-12-17 09:21 | Emergency (ER) | payer MEDICARE, MEDICAID ==
[2024-12-17 10:14] LABS: BASOPHILS PERCENT AUTO 0.3 % (0.0-1.0); EOSINOPHILS PERCENT AUTO 1.5 % (1.0-3.0); LYMPHOCYTES PERCENT AUTO 31.5 % (20.5-50.1); MONOCYTES PERCENT AUTO 7.2 % (2-8); NEUTROPHILS PERCENT AUTO 59.5 % (42.2-75.2); PLATELET COUNT,PLT 408 10^3/uL (150-450); RED BLOOD CELL COUNT 4.68 10^6/uL (4.2-5.4); WHITE BLOOD CELL COUNT,WBC 10.0 10^3/uL (5.0-10.0)
[2024-12-17 10:33] LABS: A/G RATIO 1.0; ALANINE AMINOTRANSFERASE,ALT 18 U/L (14-59); ASPARTATE AMNIOTRANSFERASE,AST 12 U/L (15-37); BILIRUBIN TOTAL 0.3 mg/dL (0.2-1.0); BLOOD UREA NITROGEN,BUN 19 mg/dL (7-18); CARBON DIOXIDE,CO2 24 mmol/L (21-32); CHLORIDE,CL 108 mmol/L (98-107); CREATININE 0.74 mg/dL (0.55-1.02); EST CRCL DRUG DOSING (CG) 58.65 mL/min; GLUCOSE RANDOM 107 mg/dL (70-99); POTASSIUM,K 4.1 mmol/L (3.5-5.1); PROTEIN TOTAL,TP 7.3 g/dL (6.4-8.2); SODIUM,NA 144 mmol/L (136-145)
[2024-12-17 10:35] LABS: ESTIMATED GFR 83 mL/min (>=60)
[2024-12-17] MEDS: Vitamin B Complex Cap PO ONE (10:48)
[2024-12-17 10:57] VITALS: BP 135/70; PULSE 51
== END 2024-12-17 11:13 | disposition home or self-care (01) ==
LOC: DL.ED 09:21
DX: L29.9 Pruritus, unspecified (principal); E78.00 Pure hypercholesterolemia, unspecified; I10 Essential (primary) hypertension; E03.9 Hypothyroidism, unspecified; E66.9 Obesity, unspecified; Z88.5 Allergy status to narcotic agent; Z88.8 Allergy status to other drugs, medicaments and biological substances; Z79.899 Other long term (current) drug therapy; Z79.890 Hormone replacement therapy; Z90.49 Acquired absence of other specified parts of digestive tract; Z90.710 Acquired absence of both cervix and uterus
CPT/HCPCS: 36415; 80053; 83735; 85025; 86140; 99283; A9270